=== PATIENT | male | born 2000 | race Caucasian/White ===

== ENCOUNTER 2022-01-18 13:06 | Observation (INO) ==
[2022-01-18] MEDS ORDERED: GI COCKTAIL ED USE PO ONE (13:38)
[2022-01-18] MEDS ORDERED: SODIUM CHLORIDE 0.9% 1000ML 1,000 ML IV STA (13:38)
--- NOTE | 2022-01-18 13:50 | Emergency Department Note ---
Impression & Plan Acute appendicitis, Abdominal pain, acute, right lower quadrant ED Provider Note NAME: LENOEL FUNES AGE: 21 SEX: M : 2000 ARRIVES VIA: Walk-In INFORMANT: Patient, ED PROVIDER(S): Leonardo Murphy DO CHIEF COMPLAINT: Abdominal pain HPI: The patient is a 21-year-old male who presented to the emergency department for an evaluation of abdominal pain. The patient states his pain became worse prior to arrival. He started having pain over the last 24 hours. He states his pain initially became in the upper abdomen but then located in his lower abdomen. He has had no fever. He has no nausea or vomiting. He notices no black or bloody bowel moods. He was not seen by provider prior to coming to the emergency department. He had a similar episode 1 month ago where he was seen at a ER where he lives. No specific diagnosis was given. The patient at that time was thought to have constipation. He was treated with medication for constipation. The patient denies having any trauma. He has no dysuria or frequency. The patient denies having any testicular pain or swelling. ROS: See above HPI for pertinent positives & negatives. A total of 10 systems reviewed and were otherwise negative. PAST MEDICAL HISTORY: See Below PAST SURGICAL HISTORY: See Below FAMILY HISTORY: See Below SOCIAL HISTORY: See Below HOME MEDICATIONS: See Below ALLERGIES: See Below VITALS: See Below PHYSICAL EXAMINATION: GENERAL: Patient is awake alert in no acute distress patient is resting comfortably and showing no signs of anxiety EYES: The conjunctivae are clear. The pupils are round and reactive. EARS, NOSE, MOUTH AND THROAT: The nose is without any evidence of any deformity. Mucous membranes are moist. Tongue is midline. NECK: The neck is nontender and supple. RESPIRATORY: Normal respiratory effort is noted there is no evidence of wheezing rhonchi or rales CARDIOVASCULAR: Regular rate and rhythm noted there no murmurs rubs or gallops normal S1 normal S2. GASTROINTESTINAL: Abdomen was soft and nondistended. There is right lower quadrant tenderness palpation. There is no specific guarding or rigidity. MUSCULOSKELETAL/EXTREMITIES: There is no evidence of gross deformity full range of motion is noted in the hips and shoulders. SKIN: There is no obvious evidence of any rash. There are no petechiae, pallor or cyanosis noted. NEUROLOGIC: Patient is awake alert and oriented x3. MEDICAL DECISION MAKING: The patient is a 21-year-old male who presented to the emergency department for an evaluation of abdominal pain. The patient was noted to have right lower quadrant abdominal pain. This has been ongoing for the last 24 hours. The patient did have right lower quadrant tenderness upon palpation. Further laboratory and radiographic studies were obtained. Given the patient's body habitus CT of the abdomen and pelvis with IV and p.o. contrast was ordered. This appears to be consistent with appendicitis. I discussed the patient's l aboratory and radiographic studies with him. I also discussed his case with the on-call general surgeon. They have agreed to evaluate the patient in the emergency department for further management and disposition. Triage Nursing notes reviewed. Prior medical records reviewed Vital Signs: reviewed and remarkable for no significant abnormalities Differential diagnosis: Appendicitis, testicular torsion, infections, diverticulitis, UTI, obstruction, mesenteric ischemia, aortic pathology, inflammatory bowel disease, renal colic, PUD, pancreatitis, biliary pathology, hernia, volvulus, constipation, as well as other pathologies. ER treatment provided: See below Diagnostics interpreted by me: ECG: none Cardiac Monitoring: An order was placed for continuous cardiac monitoring. The monitor shows a rate of 89 bpm with sinus rhythm. Laboratory studies: As stated above and show below. Imaging studies: See below Consultation(s): I discussed this case with Dr Deshpande is on-call for general surgery. Past Med/Surg History Social History Smoking Status: Never smoker Preferred Language: Chadian Feels Safe at Home: Yes Allergies Allergies Allergy/AdvReac Type Severity Reaction Status Date / Time No Known Allergies Allergy Unverified 01/18/22 17:10 Home Meds Home Medications Medication Instructions Recorded Confirmed No Known Home Medications 01/18/22 01/18/22 Results & Data (ED) Vital Signs Vital Signs - 24 hr 01/18/22 13:13 01/18/22 15:44 01/18/22 18:00 Temperature 36.5 C Temperature Source Temporal Artery Scan Pulse Rate 103 H Pulse Rate [Right Finger] 62 89 Respiratory Rate 20 23 18 Respiratory Effort / Characteristics Non-Labored Non-Labored Non-Labored Respiratory Depth Normal Normal Normal Blood Pressure 123/83 Blood Pressure [Right Arm] 132/74 123/70 Blood Pressure Mean 96 Blood Pressure Mean [Right Arm] 93 87 Pulse Oximetry 97 98 99 Oxygen Delivery Method Room Air Room Air Room Air Sepsis Recent Fever Within 48 Hours No Sepsis New/Unexplained Change in Mental Status N/A Sepsis Action Taken by Nursing No Action Required Home Medications Current Medication List: was personally reviewed by me Laboratory Data Attestation: I reviewed the patient's lab results. Result diagrams: 01/18/22 14:13 01/18/22 14:13 Lab Results 01/18/22 01/18/22 01/18/22 Range/Units 13:58 14:13 14:13 WBC 10.91 H (4.8-10.8) K/ul RBC 4.88 (4.63-6.08) M/uL Hgb 14.5 (14.0-18.0) g/dl Hct 40.9 (40.1-51.0) % MCV 83.8 (80.0-100.0) fL MCH 29.7 (25.0-34.0) pg MCHC 35.5 (32.0-36.0) g/dL RDW Std Deviation 34.5 L (36.4-46.3) fL RDW Coeff of Brent 11.4 L (11.5-14.5) % Plt Count 167 (130-400) K/uL MPV 10.2 (9.4-12.4) fL Immature Gran % (Auto) 0.4 % Neut % (Auto) 78.0 % Lymph % (Auto) 15.6 % [place] % (Auto) 5.2 % Eos % (Auto) 0.5 % Baso % (Auto) 0.3 % Neut # (Auto) 8.52 H (1.4-6.5) K/uL Lymph # (Auto) 1.70 (1.2-3.4) K/uL [place] # (Auto) 0.57 (0.24-0.82) K/uL Eos # (Auto) 0.05 (0-0.50) K/uL Baso # (Auto) 0.03 (0-0.2) K/uL Immature Gran # (Auto) 0.04 H (0.00-0.02) K/uL Sodium 139 (136-145) mmol/L Potassium 3.8 (3.5-5.1) mmol/L Chloride 105 (98-107) mmol/L Carbon Dioxide 27 (21-32) mmol/L Anion Gap 7 (3-11) BUN 14 (6-23) mg/dl Creatinine 0.99 (0.6-1.4) mg/dl Est Cr Clr Drug Dosing 113.6 ml/min Est GFR ( Amer) 124.8 ml/min Est GFR (Non-Af Amer) 107.7 ml/min BUN/Creatinine Ratio 14.1 (10-20) Glucose 101 H (70-99(Fasting)) mg/dl Calcium 9.5 (8.5-10.1) mg/dl Total Bilirubin 1.2 H (0.2-1.0) mg/dl AST 18 (13-39) U/L ALT 12 (7-52) U/L Alkaline Phosphatase 47 (34-104) U/L Total Protein 7.2 (6.0-8.3) gm/dl Albumin 4.7 (3.4-5.0) gm/dl Globulin 2.5 (2.5-4.0) gm/dl Albumin/Globulin Ratio 1.9 (0.9-2) Lipase 15 (11-82) U/L Urine Color Yellow Urine Appearance Clear (Clear) Urine pH 7.0 (4.5-7.5) Ur Specific [place] 1.017 (1.000-1.030) Urine Protein Negative (Negative) Urine Glucose (UA) Negative (Negative) Urine Ketones Negative (Negative) Urine Blood Negative (Negative) Urine Nitrite Negative (Negative) Urine Bilirubin Negative (Negative) Urine Urobilinogen Negative (Negative) Ur Leukocyte Esterase Negative (Negative) SARS-CoV-2, RNA, NAAT (NEGATIVE) 01/18/22 Range/Units 17:24 WBC (4.8-10.8) K/ul RBC (4.63-6.08) M/uL Hgb (14.0-18.0) g/dl Hct (40.1-51.0) % MCV (80.0-100.0) fL MCH (25.0-34.0) pg MCHC (32.0-36.0) g/dL RDW Std Deviation (36.4-46.3) fL RDW Coeff of Brent (11.5-14.5) % Plt Count (130-400) K/uL MPV (9.4-12.4) fL Immature Gran % (Auto) % Neut % (Auto) % Lymph % (Auto) % [place] % (Auto) % Eos % (Auto) % Baso % (Auto) % Neut # (Auto) (1.4-6.5) K/uL Lymph # (Auto) (1.2-3.4) K/uL [place] # (Auto) (0.24-0.82) K/uL Eos # (Auto) (0-0.50) K/uL Baso # (Auto) (0-0.2) K/uL Immature Gran # (Auto) (0.00-0.02) K/uL Sodium (136-145) mmol/L Potassium (3.5-5.1) mmol/L Chloride (98-107) mmol/L Carbon Dioxide (21-32) mmol/L Anion Gap (3-11) BUN (6-23) mg/dl Creatinine (0.6-1.4) mg/dl Est Cr Clr Drug Dosing ml/min Est GFR ( Amer) ml/min Est GFR (Non-Af Amer) ml/min BUN/Creatinine Ratio (10-20) Glucose (70-99(Fasting)) mg/dl Calcium (8.5-10.1) mg/dl Total Bilirubin (0.2-1.0) mg/dl AST (13-39) U/L ALT (7-52) U/L Alkaline Phosphatase (34-104) U/L Total Protein (6.0-8.3) gm/dl Albumin (3.4-5.0) gm/dl Globulin (2.5-4.0) gm/dl Albumin/Globulin Ratio (0.9-2) Lipase (11-82) U/L Urine Color Urine Appearance (Clear) Urine pH (4.5-7.5) Ur Specific [place] (1.000-1.030) Urine Protein (Negative) Urine Glucose (UA) (Negative) Urine Ketones (Negative) Urine Blood (Negative) Urine Nitrite (Negative) Urine Bilirubin (Negative) Urine Urobilinogen (Negative) Ur Leukocyte Esterase (Negative) SARS-CoV-2, RNA, NAAT NEGATIVE (NEGATIVE) Administered Medications Discontinued Medications Al Hydrox/Mg Hydrox/Simethicone (Gi Cocktail Ed Use) 1 dose PO ONE ONE Stop: 01/18/22 13:39 Last Admin: 01/18/22 13:57 Dose: 1 dose Documented By: APRIL Sodium Chloride (Nss 1000ml) 1,000 mls @ 999 mls/hr IV .Q1H1M STA Stop: 01/18/22 14:38 Last Infusion: 01/18/22 15:31 Dose: 0 mls/hr Documented By: Admin: 01/18/22 13:57 Dose: 999 mls/hr Documented By: APRIL Ioversol (Optiray 300 500ml) 93 ml IV ONCE ONE Stop: 01/18/22 16:14 Last Admin: 01/18/22 16:13 Dose: 93 ml Documented By: EDK Imaging Data Radiologist's Impression: Abdomen/Pelvis CT 01/18/22 13:38 CT SCAN OF THE ABDOMEN AND PELVIS WITH IV CONTRAST CLINICAL HISTORY: Lower abdominal pain. COMPARISON STUDY: No priors. TECHNIQUE: Following the IV administration of 93 cc of Optiray 300, CT scan of the abdomen and pelvis is performed from the lung bases to the proximal femora. Images are reviewed in the axial, sagittal, and coronal planes. IV contrast was administered without complication. Oral contrast was utilized. A dose lowering technique was utilized adhering to the principles of ALARA. CT DOSE: 300.35 mGy.cm FINDINGS: Lung bases: The heart is normal in size and without pericardial effusion. The lung bases are clear. Liver: The contrast-enhanced liver is normal in size, contour, and attenuation. There is no intrahepatic biliary ductal dilatation. The hepatic veins and portal veins are patent. Gallbladder: Unremarkable. Spleen: Normal in size and attenuation. Pancreas: Unremarkable. Adrenal glands: Unremarkable. Kidneys: The contrast enhanced kidneys are normal in size and without hydronephrosis. The kidneys enhance symmetrically. Abdominal vasculature: The abdominal aorta is normal in course and caliber. Bowel: There is no bowel obstruction. Enteric contrast reaches the rectum. The appendix is dilated and fluid-filled, measuring 9 mm in diameter as seen on image #285. The appendiceal wall is thickened and hyperemic. There are surrounding inflammation and fluid, and the appearance is consistent with acute appendicitis. No organized fluid collection is seen to indicate abscess. Peritoneum: There is no intraperitoneal free air or abdominal ascites. There is a fat-containing umbilical hernia. Lymphadenopathy: Prominent mesenteric lymph nodes in the right lower quadrant are likely reactive. Pelvic viscera: The bladder, prostate, and seminal vesicles are normal as visualized. There is trace free fluid in the pelvis. Skeletal structures: No lytic or blastic lesions are seen. IMPRESSION: 1. Findings are consistent with acute appendicitis. There is no evidence of abscess or perforation 2. Trace free fluid in the pelvis and prominent right lower quadrant mesenteric lymph nodes are likely reactive. ACT 112: Negative or not required by law. Electronically signed by: Iftikhar Myles M.D. 01/18/2022 4:22 PM Discharge Plan Visit Data Chief Complaint: Abdominal Pain Stated Complaint: ABDOMINAL PAIN ED Provider: Leonardo Murphy Discharge Problem: Acute appendicitis, Abdominal pain, acute, right lower quadrant Patient Disposition: Being Evaluated by Surgeon Forms Stand Alone Forms: [facility] [place] Prescriptions Prescriptions: No Action No Known Home Medications Referrals Referrals: PCP,NO [Physician] -
[2022-01-18 14:26] LABS: Basophils # (auto) 0.03 K/uL (0-0.2); Basophils % (auto) 0.3 %; Eosinophils # (auto) 0.05 K/uL (0-0.50); Eosinophils % (auto) 0.5 %; Hematocrit (blood only) 40.9 % (40.1-51.0); Hemoglobin 14.5 g/dl (14.0-18.0); Immature Granulocytes # (auto) 0.04 K/uL (0.00-0.02); Immature Granulocytes % (auto) 0.4 %; Lymphocytes % (auto) 15.6 %; Mean Corpuscular Hemoglobin 29.7 pg (25.0-34.0); Mean Corpuscular Hgb Conc 35.5 g/dL (32.0-36.0); Mean Corpuscular Volume 83.8 fL (80.0-100.0); Mean Platelet Volume 10.2 fL (9.4-12.4); Monocytes # (auto) 0.57 K/uL (0.24-0.82); Monocytes % (auto) 5.2 %; Neutrophils # (auto) 8.52 K/uL (1.4-6.5); Platelet Count 167 K/uL (130-400); RDW Coefficient of Variation 11.4 % (11.5-14.5); RDW Standard Deviation 34.5 fL (36.4-46.3); Red Blood Count 4.88 M/uL (4.63-6.08); White Blood Count 10.91 K/ul (4.8-10.8)
[2022-01-18 14:54] LABS: Albumin Globulin Ratio 1.9 (0.9-2); Albumin Level 4.7 gm/dl (3.4-5.0); BUN Creatinine Ratio 14.1 (10-20); Bilirubin,Total 1.2 mg/dl (0.2-1.0); Calcium 9.5 mg/dl (8.5-10.1); Creatinine Clr Calc Pharmacy 113.6 ml/min; Est GFR (African American) 124.8 ml/min; Est GFR (Non-African American) 107.7 ml/min; Globulin 2.5 gm/dl (2.5-4.0); Potassium 3.8 mmol/L (3.5-5.1); Total Protein 7.2 gm/dl (6.0-8.3)
[2022-01-18 14:56] LABS: Appearance Urine Clear (Clear); Bilirubin Urine Negative (Negative); Blood Urine Negative (Negative); Color Urine Yellow; Glucose Urine UA Negative (Negative); Ketones Urine Negative (Negative); Leukocyte Esterase Urine Negative (Negative); Nitrite Urine Negative (Negative); Protein Urine Negative (Negative); Specific Gravity Urine 1.017 (1.000-1.030); Urobilinogen Urine Negative (Negative)
[2022-01-18] MEDS ORDERED: OPTIRAY 300 500mL IV ONE (16:13)
--- NOTE | 2022-01-18 16:23 | CT Scan Report ---
CT SCAN OF THE ABDOMEN AND PELVIS WITH IV CONTRAST CLINICAL HISTORY: Lower abdominal pain. COMPARISON STUDY: No priors. TECHNIQUE: Following the IV administration of 93 cc of Optiray 300, CT scan of the abdomen and pelvi s is performed from the lung bases to the proximal femora. Images are reviewed in the axial, sagittal , and coronal planes. IV contrast was administered without complication. Oral contrast was utilized. A dose lowering technique was utilized adhering to the principles of ALARA. CT DOSE: 300.35 mGy.cm FINDINGS: Lung bases: The heart is normal in size and without pericardial effusion. The lung bases are clear. Liver: The contrast-enhanced liver is normal in size, contour, and attenuation. There is no intrahepa tic biliary ductal dilatation. The hepatic veins and portal veins are patent. Gallbladder: Unremarkable. Spleen: Normal in size and attenuation. Pancreas: Unremarkable. Adrenal glands: Unremarkable. Kidneys: The contrast enhanced kidneys are normal in size and without hydronephrosis. The kidneys enh ance symmetrically. Abdominal vasculature: The abdominal aorta is normal in course and caliber. Bowel: There is no bowel obstruction. Enteric contrast reaches the rectum. The appendix is dilated a nd fluid-filled, measuring 9 mm in diameter as seen on image #285. The appendiceal wall is thickened and hyperemic. There are surrounding inflammation and fluid, and the appearance is consistent with ac mikaela appendicitis. No organized fluid collection is seen to indicate abscess. Peritoneum: There is no intraperitoneal free air or abdominal ascites. There is a fat-containing umbi lical hernia. Lymphadenopathy: Prominent mesenteric lymph nodes in the right lower quadrant are likely reactive. Pelvic viscera: The bladder, prostate, and seminal vesicles are normal as visualized. There is trace free fluid in the pelvis. Skeletal structures: No lytic or blastic lesions are seen. IMPRESSION: 1. Findings are consistent with acute appendicitis. There is no evidence of abscess or perforation 2. Trace free fluid in the pelvis and prominent right lower quadrant mesenteric lymph nodes are likel y reactive. ACT 112: Negative or not required by law. Electronically signed by: Iftikhar Myles M.D. 01/18/2022 4:22 PM
--- NOTE | 2022-01-18 17:26 | History & Physical Report ---
Date of Service January 18, 2022 Assessment & Plan (1) Acute appendicitis: Plan: 21 yr old with acute appendicitis with unusual clinical course with recurrent symptoms for the past few months. Discussed laparoscopic appendectomy with risks of bleeding, infection, conversion to open, postop ileus/ postop abscess. Consent signed. For OR today. Expected overnight hospital stay and 1-2 week recovery period reviewed. History of Present Illness Chief Complaint: abdominal pain Primary Care Provider: Dolores Javier DPM 21 yr old man presents with 24 hours of abdominal pain, starting in upper abdomen and then throughout the mid abdomen. Pain is persistent, worsening over the course of day, moderate intensity, worse with movement. Thought it might be constipation and took some medication but no relief. Interestingly has had similar episodes over the last 4 months. Was seen in the ER at his home in [place] and sent home. Those episodes lasted a few days then resolved. No vomiting but felt nauseated which he thinks is from nerves. Allergies Allergy/AdvReac Type Severity Reaction Status Date / Time No Known Allergies Allergy Unverified 01/18/22 17:10 Home Medications Medication Instructions Recorded Confirmed Type No Known Home Medications 01/18/22 01/18/22 History Past Med/Surg History Social History Smoking Status: Never smoker Preferred Language: Estonian Feels Safe at Home: Yes Review of Systems Review of Systems: All systems reviewed & are unremarkable except as noted in HPI & below Physical Exam Constitutional: WD/WN, vitals as above Eyes: PERRL, conjunctivae normal, anicteric sclerae ENMT: external ear and nose normal, oropharynx normal Neck: normal visual inspection and trachea midline Respiratory: normal respiratory effort, lungs clear to auscultation Cardiovascular: RRR, no murmur, no edema Gastrointestinal (Abdomen): Inspection/Auscultation: abdomen normal to inspection; abdomen not distended Percussion/Palpation: + abdomen tender (mid lower abdomen); no guarding and no hernia Musculoskeletal: no cyanosis or clubbing, extremities motor strength 5/5 Neurologic: awake; no focal motor deficits Psychiatric: A+Ox3, euthymic affect Results & Data Results & Data ([facility]) Vital Signs (Past 12 Hours) Vital Signs Temp Pulse Pulse Resp BP BP Pulse Ox 08/19/22 15:44 62 23 132/74 98 01/18/22 13:13 36.5 C 103 H 20 123/83 97 O2 Del Method 01/18/22 15:44 Room Air 01/18/22 13:13 Room Air Laboratory Results 01/18/22 01/18/22 01/18/22 Range/Units 14:13 14:13 13:58 WBC 10.91 H (4.8-10.8) K/ul RBC 4.88 (4.63-6.08) M/uL Hgb 14.5 (14.0-18.0) g/dl Hct 40.9 (40.1-51.0) % MCV 83.8 (80.0-100.0) fL MCH 29.7 (25.0-34.0) pg MCHC 35.5 (32.0-36.0) g/dL RDW Std Deviation 34.5 L (36.4-46.3) fL RDW Coeff of Brent 11.4 L (11.5-14.5) % Plt Count 167 (130-400) K/uL MPV 10.2 (9.4-12.4) fL Immature Gran % (Auto) 0.4 % Neut % (Auto) 78.0 % Lymph % (Auto) 15.6 % [place] % (Auto) 5.2 % Eos % (Auto) 0.5 % Baso % (Auto) 0.3 % Neut # (Auto) 8.52 H (1.4-6.5) K/uL Lymph # (Auto) 1.70 (1.2-3.4) K/uL [place] # (Auto) 0.57 (0.24-0.82) K/uL Eos # (Auto) 0.05 (0-0.50) K/uL Baso # (Auto) 0.03 (0-0.2) K/uL Immature Gran # (Auto) 0.04 H (0.00-0.02) K/uL Sodium 139 (136-145) mmol/L Potassium 3.8 (3.5-5.1) mmol/L Chloride 105 (98-107) mmol/L Carbon Dioxide 27 (21-32) mmol/L Anion Gap 7 (3-11) BUN 14 (6-23) mg/dl Creatinine 0.99 (0.6-1.4) mg/dl Est Cr Clr Drug Dosing 113.6 ml/min Est GFR ( Amer) 124.8 ml/min Est GFR (Non-Af Amer) 107.7 ml/min BUN/Creatinine Ratio 14.1 (10-20) Glucose 101 H (70-99(Fasting)) mg/dl Calcium 9.5 (8.5-10.1) mg/dl Total Bilirubin 1.2 H (0.2-1.0) mg/dl AST 18 (13-39) U/L ALT 12 (7-52) U/L Alkaline Phosphatase 47 (34-104) U/L Total Protein 7.2 (6.0-8.3) gm/dl Albumin 4.7 (3.4-5.0) gm/dl Globulin 2.5 (2.5-4.0) gm/dl Albumin/Globulin Ratio 1.9 (0.9-2) Lipase 15 (11-82) U/L Urine Color Yellow Urine Appearance Clear (Clear) Urine pH 7.0 (4.5-7.5) Ur Specific [place] 1.017 (1.000-1.030) Urine Protein Negative (Negative) Urine Glucose (UA) Negative (Negative) Urine Ketones Negative (Negative) Urine Blood Negative (Negative) Urine Nitrite Negative (Negative) Urine Bilirubin Negative (Negative) Urine Urobilinogen Negative (Negative) Ur Leukocyte Esterase Negative (Negative) Diagnostic Findings CT scan CT DOSE: 300.35 mGy.cm FINDINGS: Lung bases: The heart is normal in size and without pericardial effusion. The lung bases are clear. Liver: The contrast-enhanced liver is normal in size, contour, and attenuation. There is no intrahepatic biliary ductal dilatation. The hepatic veins and portal veins are patent. Gallbladder: Unremarkable. Spleen: Normal in size and attenuation. Pancreas: Unremarkable. Adrenal glands: Unremarkable. Kidneys: The contrast enhanced kidneys are normal in size and without hydronephrosis. The kidneys enhance symmetrically. Abdominal vasculature: The abdominal aorta is normal in course and caliber. Bowel: There is no bowel obstruction. Enteric contrast reaches the rectum. The appendix is dilated and fluid-filled, measuring 9 mm in diameter as seen on image #285. The appendiceal wall is thickened and hyperemic. There are surrounding inflammation and fluid, and the appearance is consistent with acute appendicitis. No organized fluid collection is seen to indicate abscess. Peritoneum: There is no intraperitoneal free air or abdominal ascites. There is a fat-containing umbilical hernia. Lymphadenopathy: Prominent mesenteric lymph nodes in the right lower quadrant are likely reactive. Pelvic viscera: The bladder, prostate, and seminal vesicles are normal as visualized. There is trace free fluid in the pelvis. Skeletal structures: No lytic or blastic lesions are seen. IMPRESSION: 1. Findings are consistent with acute appendicitis. There is no evidence of abscess or perforation 2. Trace free fluid in the pelvis and prominent right lower quadrant mesenteric lymph nodes are likely reactive.
[2022-01-18] MEDS ORDERED: cefOXitin 2,000 MG/60 ML BAG IV STA (20:18)
[2022-01-18] MEDS ORDERED: BUPIVACAINE 0.5 % 5 MG/1 ML MPF 30ML VIAL ONE (21:10)
--- NOTE | 2022-01-18 21:17 | Anesthesiology Consultation ---
Date of Service January 18, 2022 Assessment & Plan Chart Review Chart Review: Acceptable Risk for Surgery and Patient NOT seen in Pre Admission Testing Consults Requested none ASA [id number] Proposed Anesthesia Anesthesia Type: General Risk / Benefits Reviewed With: PT / POA / Parent / Guardian, Accepts Plan and Informed Consent Obtained History Surgery Operation Date: 01/18/22 18:40 Proposed Procedures p Laparoscopic Appendectomy - Angela Deshpande MD Height/Weight Height: 6 ft Weight: 68.6 kg Allergies Allergy/AdvReac Type Severity Reaction Status Date / Time No Known Allergies Allergy Unverified 01/18/22 17:10 Medications Home Medications Medication Instructions Recorded Confirmed Last Taken No Known Home Medications 01/18/22 01/18/22 Unknown NPO Date Last Intake of Fluids: 01/18/22 Time Last Intake of Fluids: 14:00 Date Last Intake of Solids: 01/18/22 Time Last Intake of Solids: 09:00 Exercise / Class Metabolic Activity II 4-5 Yardwork/Stairs/Walk up hill Past Anesthesia History No Hx of Anesthesia Complications and No Family Hx of Anesthesia Complications History of PONV No Hx of PONV and No Hx of Motion Sickness Social History Smoking Status: Never smoker Physical Exam Vital Signs Last Vital Signs Temp 36.5 C 01/18/22 13:13 Pulse 89 01/18/22 18:00 Resp 18 01/18/22 18:00 BP 123/70 01/18/22 18:00 Pulse Ox 99 01/18/22 18:00 O2 Del Method 01/18/22 18:00 ENMT Mouth: no dentition abnormality Thyromental Distance: > or= 3.5 Finger Breadths Mallampati Class: II Neck normal visual inspection Respiratory normal respiratory effort Auscultation: lungs clear to auscultation bilaterally Cardiovascular Rate/Rhythm: regular rate and regular rhythm Psychiatric Orientation: alert Testing Laboratory Results 01/18/22 14:13 01/18/22 14:13 Urine Color Yellow 01/18/22 13:58 Urine Appearance Clear (Clear) 01/18/22 13:58 Urine pH 7.0 (4.5-7.5) 01/18/22 13:58 Ur Specific [place] 1.017 (1.000-1.030) 01/18/22 13:58 Urine Protein Negative (Negative) 01/18/22 13:58 Urine Glucose (UA) Negative (Negative) 01/18/22 13:58 Urine Ketones Negative (Negative) 01/18/22 13:58 Urine Nitrite Negative (Negative) 01/18/22 13:58 Ur Leukocyte Esterase Negative (Negative) 01/18/22 13:58
[2022-01-18] MEDS ORDERED: fentaNYL citrate 100 MCG/2 ML VIAL ONE ×2 (21:20)
[2022-01-18] MEDS ORDERED: ROCURONIUM BROMIDE 10 MG/ML 5 ML VIAL IV ONE (21:42)
[2022-01-18] MEDS ORDERED: MoRPHine SULFATE 2 MG/ML CARP ONE (21:42)
[2022-01-18] MEDS ORDERED: PROPOFOL IV EMULSION 10 MG/ML 20 ML VIAL IV ONE (21:42)
[2022-01-18] MEDS ORDERED: SUCCINYLCHOLINE CHLORIDE 20 MG/ML 10 ML VIAL IV ONE (21:42)
[2022-01-18] MEDS ORDERED: LIDOCAINE 2% MPF LOCAL 5 ML VIAL INFIL ONE (21:42)
[2022-01-18] MEDS ORDERED: NEOSTIGMINE METHYLSULFATE 1 MG/ML 10ML VIAL ONE (22:12)
[2022-01-18] MEDS ORDERED: KETOROLAC 30 MG/ML VIAL ONE (22:12)
[2022-01-18] MEDS ORDERED: GLYCOPYRROLATE 0.2 MG/ML VIAL ONE (22:12)
--- NOTE | 2022-01-18 22:21 | Operative Report ---
Post Operative Report Pre & Post Diagnosis Operation Date: 01/18/22 18:40 Pre-Op Diagnosis: acute Appendicitis Post-Op Diagnosis: acute suppurative nonperforated Appendicitis I identified the patient and participated in the time-out.: Yes Procedure Operation Date: 01/18/22 18:40 Actual Procedures p Laparoscopic Appendectomy(Not Applicable) - Angela Deshpande MD Surgeon Angela Deshpande MD Block Feeder none Estimated Blood Loss 5 Findings Consistent with Post-Op Diagnosis acute suppurative appendicitis Fluids 1000 cc IVF Specimens appendix Drains none Anesthesia Type General Complications none Disposition Accompanied Patient To Recovery: No Disposition: Recovery Room Indications 21-year-old man who presented with acute appendicitis. He was consented regarding laparoscopic appendectomy Description of Procedure The patient received cefoxitin preoperatively. He voided prior to the procedure. After the induction of general endotracheal anesthesia, he had placement of sequential compression devices. His abdomen was clipped and then sterilely prepped and draped. He was positioned with his left arm tucked. He was placed in Trendelenburg. A supraumbilical incision was made and a Veress needle placed into the peritoneal cavity. This was tested with the saline drop test. Initial pressure was 2 mmHg and this was taken up to 15 mmHg. A 12 mm trocar was placed with the camera through the trocar. 2 additional trochars were placed under direct vision. A 5 mm was placed in the left lower quadrant and another 5 mm in the midline pubic area. Initial inspection of the abdomen revealed an acutely inflamed suppurative appendix. This was grasped and a window created at the base of the appendix on the cecum. The appendix was divided off the cecum with a firing of the SAM bowel load stapler. The a ppendiceal mesentery was taken with a second firing of the SAM vascular load stapler. The appendix was placed in Endobag and removed through the umbilical incision. The abdomen was irrigated and suctioned. Hemostasis was noted to be present. The trochars were removed. The fascia of the umbilical incision was closed with 0 Vicryl stitches placed anteriorly. The skin of all 3 incisions was closed with running subcuticular 4-0 Vicryl sutures. Steri-Strips and sterile dressings were applied. He was awakened and taken to recovery in stable condition. I attest to the content of the Intraoperative Record and any orders documented therein. Any exceptions are noted below.
[2022-01-18] MEDS ORDERED: ONDANSETRON INJ 2 MG/ML 2 ML VIAL IV PRN ×2 (22:26→23:23)
[2022-01-18] MEDS ORDERED: ATROPINE SULFATE 0.1 MG/ML 10ML SYR IV PRN (22:26)
[2022-01-18] MEDS ORDERED: ePHEDrine sulfate 50 MG/ML AMP IV PRN (22:26)
[2022-01-18] MEDS ORDERED: fentaNYL citrate 100 MCG/2 ML VIAL IV PRN (22:26)
--- NOTE | 2022-01-18 22:27 | Anesthesiology Progress Note ---
Date of Service January 18, 2022 Anesthesia Post Procedure Vital Signs Vital Signs: Temp Pulse Pulse Resp BP BP Pulse Ox 01/18/22 18:00 89 18 123/70 99 01/18/22 15:44 62 23 132/74 98 01/18/22 13:13 36.5 C 103 H 20 123/83 97 O2 Del Method 01/18/22 18:00 Room Air 01/18/22 15:44 Room Air 01/18/22 13:13 Room Air Pain Intensity Medial Abdomen: Pain Intensity: 6 Transfer of Care Handoff Completed per policy Notes Mental Status: alert / awake / arousable Patient Amnestic to Procedure: Yes Nausea / Vomiting: adequately controlled Pain: adequately controlled Airway Patency, RR, SpO2: stable & adequate BP & HR: stable & adequate Hydration State: stable & adequate Anesthetic Complications: no major complications apparent
[2022-01-18] MEDS ORDERED: KETOROLAC TROMETHAMINE 15 MG/ML VIAL IV PRN (23:23)
[2022-01-18] MEDS ORDERED: ACETAMINOPHEN 325 MG TAB PO PRN (23:23)
[2022-01-18] MEDS ORDERED: HYDROCODONE/ACETAMOPHEN 5/325MG TAB PO PRN ×2 (23:23)
[2022-01-18] MEDS ORDERED: MoRPHine SULFATE 4 MG/ML 1 ML CARP\\VIAL IV PRN (23:23)
[2022-01-18] MEDS ORDERED: MoRPHine SULFATE 2 MG/ML CARP IV PRN (23:23)
[2022-01-18] MEDS: LACTATED RINGER'S 1,000 ML IV SCH (23:43)
[2022-01-19] MEDS: LACTATED RINGER'S 1,000 ML IV SCH (06:05)
--- NOTE | 2022-01-19 09:42 | Surgery Progress Note ---
Date of Service January 19, 2022 Assessment & Plan (1) Acute appendicitis: Plan: s/p lap appendectomy. Stable for discharge today. Postop instructions reviewed. Admission and Anticipated Discharge Date Admission Date: January 18, 2022 Subjective Feels well. Sore but just took some tylenol. Review of Systems Review of Systems: All systems reviewed & are unremarkable except as noted in HPI & below Physical Exam Constitutional: WD/WN, vitals as above Eyes: PERRL, conjunctivae normal, anicteric sclerae ENMT: external ear and nose normal, oropharynx normal Neck: normal visual inspection and trachea midline Respiratory: normal respiratory effort, lungs clear to auscultation Cardiovascular: RRR, no murmur, no edema Gastrointestinal (Abdomen): Inspection/Auscultation: abdomen normal to inspection and + abdominal surgical incision (dressings with dried blood); abdomen not distended Percussion/Palpation: abdomen nontender, no guarding and no hernia Musculoskeletal: no cyanosis or clubbing, extremities motor strength 5/5 Neurologic: awake; no focal motor deficits Psychiatric: A+Ox3, euthymic affect Results & Data ([facility]) Vital Signs (Past 12 Hours) Vital Signs Temp Pulse Pulse Resp BP Pulse Ox O2 Del Method 01/19/22 06:31 36.8 C 77 16 110/58 L 98 Room Air 01/19/22 03:50 36.9 C 85 16 120/55 L 97 Room Air 01/19/22 02:00 36.8 C 78 16 115/62 97 Room Air 01/19/22 01:19 36.8 C 92 H 16 111/64 97 Room Air 01/19/22 00:19 36.7 C 70 16 121/67 97 Room Air 01/18/22 23:46 36.7 C 64 16 116/70 98 Room Air 01/18/22 23:15 37.1 C 77 16 124/67 98 Room Air 01/18/22 23:15 37.1 C 77 16 124/67 98 Room Air 01/18/22 23:05 72 16 118/70 97 Room Air 01/18/22 22:55 36.6 C 75 24 116/65 96 Room Air 01/18/22 22:45 77 20 119/65 98 Room Air 01/18/22 22:35 72 23 124/68 100 Nasal Cannula 01/18/22 22:25 83 20 113/93 100 Nasal Cannula 01/18/22 22:17 36.5 C 90 18 129/65 99 Nasal Cannula O2 Flow Rate 01/19/22 06:31 01/19/22 03:50 01/19/22 02:00 01/19/22 01:19 01/19/22 00:19 01/18/22 23:46 01/18/22 23:15 01/18/22 23:15 01/18/22 23:05 01/18/22 22:55 01/18/22 22:45 01/18/22 22:35 4 01/18/22 22:25 4 01/18/22 22:17 4 (1) Acute appendicitis Acute appendicitis type: with localized peritonitis Appendicitis abscess presence: without abscess Appendicitis gangrene presence: without gangrene Appendicitis perforation presence: without perforation Qualified Code(s): K35.30 - Acute appendicitis with localized peritonitis, without perforation or gangrene
--- NOTE | 2022-01-19 09:50 | Discharge Summary ---
Date of Service January 19, 2022 Admission HPI Per Admitting Provider 21 yr old man presents with 24 hours of abdominal pain, starting in upper abdomen and then throughout the mid abdomen. Pain is persistent, worsening over the course of day, moderate intensity, worse with movement. Thought it might be constipation and took some medication but no relief. Interestingly has had similar episodes over the last 4 months. Was seen in the ER at his home in [place] and sent home. Those episodes lasted a few days then resolved. No vomiting but felt nauseated which he thinks is from nerves. Admission Exam (Per Admitting) Constitutional WD/WN, vitals as above Eyes PERRL, conjunctivae normal, anicteric sclerae ENMT external ear and nose normal, oropharynx normal Neck normal visual inspection and trachea midline Respiratory normal respiratory effort, lungs clear to auscultation Cardiovascular RRR, no murmur, no edema Gastrointestinal (Abdomen) Inspection/Auscultation: abdomen normal to inspection and + abdominal surgical incision (dressings with dried blood); abdomen not distended Percussion/Palpation: abdomen nontender, no guarding and no hernia Musculoskeletal no cyanosis or clubbing, extremities motor strength 5/5 Neurologic awake; no focal motor deficits Psychiatric A+Ox3, euthymic affect Discharge Data Consultations 01/18/22 16:36 Consult General Surgery Stat Procedures Performed Operation Date: 01/18/22 18:40 Actual Procedures p Laparoscopic Appendectomy(Not Applicable) - Angela Deshpande MD Hospital Course (1) Acute appendicitis: s/p lap appendectomy. Stable for discharge today. Postop instructions reviewed.
== END 2022-01-19 14:00 | disposition home or self-care (01) ==
LOC: ED 13:06 → 3N 20:39 → OR 20:39
DX: K35.80 Unspecified acute appendicitis